=== PATIENT | male | born 1945 | race Caucasian/White ===

== ENCOUNTER → 2021-03-22 | Outpatient (CLI) | payer MEDICARE, OTHER ==
[~2021-03-22] MED LIST: AZILECT1 MG; NEURONTIN300 MG PO
== END ==
LOC: DX 12:26
PROVIDERS: ATTEND Psychiatry & Neurology Clinical Neurophysiology
DX: R13.10 Dysphagia, unspecified (principal); G20 Parkinson's disease; Z20.822 Contact with and (suspected) exposure to COVID-19
CPT/HCPCS: 74230; 92611; U0002

== ENCOUNTER 2021-04-11 13:56 | Outpatient (RCR) | payer MEDICARE | END 2021-04-15 | LOC: PT 13:56 | PROVIDERS: ATTEND Psychiatry & Neurology Clinical Neurophysiology | DX: G20 Parkinson's disease (principal); R13.10 Dysphagia, unspecified ==

== ENCOUNTER → 2021-05-15 | Outpatient (RCR) | payer MEDICARE | LOC: PT 04-16 12:53 → ST 04-24 11:00 → PT 04-25 13:00 → ST 04-29 12:49 → PT 04-29 12:51 → ST 05-03 13:00 → PT 05-03 14:00 → ST 05-06 12:47 → PT 05-06 14:00 → ST 05-10 12:50 → PT 05-10 13:49 → ST 05-13 13:00 → PT 05-13 13:02 | PROVIDERS: ATTEND Psychiatry & Neurology Clinical Neurophysiology | DX: G20 Parkinson's disease (principal); R13.10 Dysphagia, unspecified | CPT/HCPCS: 97139 ==

== ENCOUNTER 2021-05-29 12:56 | Outpatient (RCR) | payer MEDICARE | END 2021-06-15 | LOC: ST 12:56 | PROVIDERS: ATTEND Psychiatry & Neurology Clinical Neurophysiology | DX: R13.12 Dysphagia, oropharyngeal phase (principal); G20 Parkinson's disease ==

== ENCOUNTER → 2021-06-05 | Outpatient (CLI) | payer MEDICARE, OTHER | LOC: DX 12:44 | PROVIDERS: ATTEND Family Medicine | DX: R13.12 Dysphagia, oropharyngeal phase (principal); G20 Parkinson's disease; Z20.822 Contact with and (suspected) exposure to COVID-19 | CPT/HCPCS: 74230; 92526; 92611; U0002 ==